=== PATIENT | female | born 1975 | race Caucasian/White ===

== ENCOUNTER 2019-08-10 19:34 | Emergency (ER) | payer OTHER ==
[2019-08-10] MEDS ORDERED: CYCLOBENZAPRINE HCL 10 MG TABLET PO ONE (20:33)
[2019-08-10] MEDS ORDERED: ACETAMINOPHEN 325 MG TABLET PO ONE (20:33)
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
[2019-08-10 21:49] VITALS: BP 123/72
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
== END 2019-08-10 22:33 | disposition home or self-care (01) ==
LOC: ER 19:34
DX: M54.9 Dorsalgia, unspecified (principal); M54.2 Cervicalgia; V49.40XA Driver injured in collision with unspecified motor vehicles in traffic accident, initial encounter; Z97.5 Presence of (intrauterine) contraceptive device
CPT/HCPCS: 72125; 72128

== ENCOUNTER 2019-12-20 08:07 | Day surgery (SDC) | payer OTHER ==
[~2019-12-20 08:07] MED LIST: PROPOFOL INJ 200 MG/20 ML VIAL IV ONE
[2019-12-20 09:42] VITALS: BP 116/76
--- NOTE | 2019-12-20 13:22 | Operative Report ---
Operative Report DATE OF SURGERY: 12/20/19 Operative Report: The risk, benefits and alternatives of the procedure including the risk of bleeding, perforation requiring surgery have been explained to the patient in detail and informed consent has been obtained. Patient is placed in a left, lateral decubital position. Timeout was called. Propofol medication is administered. Rectal examination is done which did not reveal any masses, tears or fissures. An Olympus videoscope was introduced into the patient's rectum. Scope was then carefully advanced all the way to the cecum. The cecum was identified by the usual anatomical landmarks of the ileocecal valve as well as the appendiceal office. Photodocumentation is obtained. Scope was then sequentially pulled back via the various segments of the colon including the ascending colon, hepatic flexure, transverse colon, splenic flexure, descending colon and finally into the rectosigmoid portions of the colon. Retroflexion maneuvers performed. The risks benefits and alternatives of the procedure explained to the patient in detail and informed consent is obtained.A GIF Olympus video scope was inserted into the patient's mouth and hypopharynx, the esophagus is identified intubated and insufflated ,the scope was then advanced through the esophagus stomach and duodenum ,retroflexion maneuver is done ,the esophagus stomach and first and second portions of the duodenum examined PREOPERATIVE DIAGNOSIS: Change in bowel habits. Epigastric pain POSTOPERATIVE DIAGNOSIS: Gastric polyps in the stomach status post removal snare polypectomy and retrieved with [employer] net. Internal hemorrhoids. Right side colon inflammation status post biopsy rule out collagenous colitis OPERATION: Colonoscopy with biopsy. EGD with snare polypectomy SURGEON: KERON KELLER ANESTHESIA: LMAC TISSUE REMOVED OR ALTERED: As noted above. COMPLICATIONS: None. ESTIMATED BLOOD LOSS: None. INTRAOPERATIVE FINDINGS: As noted above. PROCEDURE: Patient tolerated the procedure well. No immediate postprocedure complications are noted. Patient is discharged in good condition. Discharge date 12/20/2019. Discharge diet: Regular. Discharge activity: Regular. 2 to 3-week follow-up to discuss findings. Patient is instructed to call the office or proceed to the emergency room should there be any further problems or questions. Wait on the pathology.
== END 2019-12-20 09:42 | disposition home or self-care (01) ==
LOC: END 08:07
PROVIDERS: ATTEND Internal Medicine Gastroenterology
DX: K31.7 Polyp of stomach and duodenum (principal); K52.9 Noninfective gastroenteritis and colitis, unspecified; K64.8 Other hemorrhoids; E66.9 Obesity, unspecified
CPT/HCPCS: 43251; 45380; 88305 ×2; J2704; 813

== ENCOUNTER → 2020-11-01 | Outpatient (CLI) | payer OTHER ==
--- NOTE | 2020-11-01 16:32 | RADIOLOGY REPORT (SQ) ---
EXAM DESCRIPTION: KNEE LEFT 4 VIEW IMAGES COMPLETED DATE/TIME: 11/01/2020 3:57 pm REASON FOR STUDY: M25.569 PAIN IN UNSPECIFIED KNEE M25.569 PAIN IN UNSPECIFIED KNEE G24.9 D[place]ON[place] , UNSPECIFIED COMPARISON: None. NUMBER OF VIEWS: Four views. TECHNIQUE: AP, lateral, and both oblique radiographic images acquired of the left knee. LIMITATIONS: None. FINDINGS: MINERALIZATION: Normal. BONES: No acute fracture or dislocation. No worrisome bone lesions. No significant osteophytes. JOINT: Small joint effusion. OTHER: No other significant finding. IMPRESSION: Small joint effusion. No acute osseous finding. TECHNICAL DOCUMENTATION: JOB ID: [id number] 2010 [employer]- All Rights Reserved Reading location - IP/workstation name: [email or web address]
== END ==
LOC: RAD 15:38
PROVIDERS: ATTEND Nurse Practitioner Primary Care
DX: M25.562 Pain in left knee (principal); M25.462 Effusion, left knee; G24.9 Dystonia, unspecified